=== PATIENT | male | born 1950 | race African-American/Black ===

== ENCOUNTER → 2019-08-14 | Day surgery (SDC) | payer OTHER, MEDICAID ==
[~2019-08-14] MED LIST: AMLO10TA4 PO; DIAZ5TAB PO; HYDR-2761 PO; IV RINGERS,LACTATED 1000ML 1,000 ML IV SCH; OMEP20CA5 PO; ONDA4TAB10 SL; PANT20TA2 PO; PROPOFOL 20 ML IV ONE; RANI300C PO; TAMS0.4C97 PO; hydrochlorothiazide PO; lisinopril PO
[2019-08-14 11:15] VITALS: BP 179/95
== END | disposition home or self-care (01) ==
LOC: ENDOS 09:07
PROVIDERS: ATTEND Internal Medicine Gastroenterology
DX: D50.9 Iron deficiency anemia, unspecified (principal); K64.0 First degree hemorrhoids; R63.4 Abnormal weight loss; K29.40 Chronic atrophic gastritis without bleeding; G47.30 Sleep apnea, unspecified; I10 Essential (primary) hypertension; Z88.6 Allergy status to analgesic agent; Z88.8 Allergy status to other drugs, medicaments and biological substances; Z85.038 Personal history of other malignant neoplasm of large intestine; Z79.899 Other long term (current) drug therapy
CPT/HCPCS: 43235; 45378; J2704

== ENCOUNTER 2020-08-16 23:27 | Emergency (ER) | payer OTHER, MEDICAID ==
[~2020-08-16] VITALS: Ht 162.6 cm; Wt 52.2 kg
[~2020-08-16 23:27] MED LIST changes: -IV RINGERS,LACTATED 1000ML 1,000 ML IV SCH; -PROPOFOL 20 ML IV ONE
[2020-08-17] MEDS ORDERED: LABETALOL 20 MG/4 ML DISP.SYRIN. IVP ONE (01:00)
--- NOTE | 2020-08-17 01:03 | PHYS DOC ---
Past Medical History Past Medical History: Arthritis, COPD, GERD, Hypertension, Lung Disease, Pneumonia, Additional Disease, Other Additional Past Medical Histor: Essential Tremor, Urinary Retention Past Surgical History: Other Additional Past Surgical Histo: right hand surgery Smoking Status: Current Every Day Smoker Alcohol Use: Occasionally Drug Use: None General Adult EDM: Chief Complaint: HYPERTENSION HPI: HPI: Patient is a 70 year old male who presents to the emergency department due to elevated blood pressure. Patient states that he had a dispute with one of his family members and has not been able to get any of his several blood pressure medications for the past week. He states that he has a slight headache but no nausea vomiting blurred vision or lightheadedness. He cannot recall all of his medications but knows that one of them is lisinopril. He normally follows with [facility]. Review of Systems: Review of Systems: Review of systems: Constitutional symptoms- No fever, no chills. Eyes- No Discharge, No Visual Loss Respiratory symptoms- No shortness of breath, No wheezing, No Dyspnea on Exertion Cardiovascular Systems; No chest pain, No Palpitations, No syncope Gastrointestinal symptoms: NO abdominal pain, no nausea, no vomiting or diarrhea. Genitourinary symptoms: No dysuria. Musculoskeletal symptoms: No back pain No extremity pain. NEUROLOGICAL Symptoms: Positive headache, no generalized weakness; No focal Weakness Heart Score: C/O Chest Pain: N/A Risk Factors: Risk Factors: DM, Current or recent (<one month) smoker, HTN, HLP, family hi story of CAD, obesity. Risk Scores: Score 0 - 3: 2.5% MACE over next 6 weeks - Discharge Home Score 4 - 6: 20.3% MACE over next 6 weeks - Admit for Clinical Observation Score 7 - 10: 72.7% MACE over next 6 weeks - Early Invasive Strategies Current Medications: Current Medications Medications (Trade) Dose Ordered Sig/Jose David Start Time Stop Time Status Last Admin Dose Admin Labetalol HCl (Normodyne Iv Push) 20 mg 1X ONCE 08/17/20 01:00 08/17/20 01:01 Allergies: Allergies: Allergies Coded Allergies Type Severity Reaction Last Updated Verified aspirin Adverse Reaction Intermediate "STOMACH BLEEDS" 08/17/20 Yes bismuth subsalicylate Adverse Reaction Intermediate "STOMACH BLEEDS" 08/17/20 Yes ibuprofen Adverse Reaction Intermediate "STOMACH BLEEDS" 08/17/20 Yes Physical Exam: PE: General: alert, no acute distress. Skin: warm, dry and intact. Head:: Normocephalic, atraumatic. Neck: Trachea midline. Eyes: EOMI, Normal conjunctiva, No drainage CARDIOVASCULAR: Regular rate and rhythm RESPIRATORY: No respiratory distress Back: Full range of motion. MUSCULOSKELETAL: Full range of motion of bilateral upper and lower extremities. GASTROINTESTINAL: Abdomen soft without rebound or guarding. NEUROLOGICAL: Alert and noted to person, place and time. No neurological deficits observed Psychiatric: Cooperative. Normal judgment EKG: EKG: [] Radiology/Procedures: Radiology/Procedures: [] Course & Med Decision Making: Course & Med Decision Making Pertinent Labs and Imaging studies reviewed. (See chart for details) []Treated with labetolol. Blood pressure 164/80's Nishi Disclaimer: Nishi Disclaimer: This electronic medical record was generated, in whole or in part, using a voice recognition dictation system. Departure Departure Impression: Primary Impression: Hypertension Disposition: HOME / SELF CARE / HOMELESS Condition: STABLE Referrals: VICKI LOPEZ MD (PCP) ZACHARIAH STRONG DO Aug 17, 2020 01:03
--- NOTE | 2020-08-17 01:44 | EKG ---
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
[2020-08-17 03:00] LABS: BASO # 0.1 x10^3/uL (0.0-0.2); BASO % 2 % (0-3); EOS # 0.1 x10^3/uL (0.0-0.7); EOS % 2 % (0-3); HEMOGLOBIN 13.4 g/dL (13.0-17.5); LYMPH # 1.6 x10^3/uL (1.0-4.8); LYMPH % 30 % (24-48); MEAN CORPUSCULAR HEMOGLOBIN 31 pg (25-35); MEAN CORPUSCULAR HGB CONC 33 g/dL (31-37); MEAN CORPUSCULAR VOLUME 92 fL (79-100); MONO # 0.6 x10^3/uL (0.0-1.1); MONO % 12 % (0-9); NEUT % 56 % (31-73); PLATELET COUNT 302 x10^3/uL (140-400); RED BLOOD COUNT 4.33 x10^6/uL (4.30-5.70); RED CELL DISTRIBUTION WIDTH 17.7 % (11.5-14.5); WHITE BLOOD COUNT 5.3 x10^3/uL (4.0-11.0)
[2020-08-17 03:13] LABS: CALCIUM 8.7 mg/dL (8.5-10.1); CREATININE 1.1 mg/dL (0.7-1.3); GFR 79.8; POTASSIUM 4.6 mmol/L (3.5-5.1)
[2020-08-17 03:19] LABS: ALBUMIN/GLOBULIN RATIO 0.6 (1.0-1.7); TOTAL BILIRUBIN 0.3 mg/dL (0.2-1.0); TOTAL PROTEIN 8.4 g/dL (6.4-8.2)
[2020-08-17 03:52] VITALS: BP 151/82
[2020-08-17] MEDS ORDERED: DIAZ5TAB PO (09:19)
== END 2020-08-17 06:40 | disposition home or self-care (01) ==
LOC: ER 23:27
DX: I10 Essential (primary) hypertension (principal); R51.9 Headache, unspecified; M19.90 Unspecified osteoarthritis, unspecified site; J44.9 Chronic obstructive pulmonary disease, unspecified; K21.9 Gastro-esophageal reflux disease without esophagitis; F17.210 Nicotine dependence, cigarettes, uncomplicated; Z88.6 Allergy status to analgesic agent; Z88.8 Allergy status to other drugs, medicaments and biological substances
CPT/HCPCS: 36415; 80053; 84484; 85025; 93005; 96374; 99284; J3490

== ENCOUNTER 2020-08-17 07:32 | Emergency (ER) | payer OTHER, MEDICAID ==
[~2020-08-17] VITALS: Ht 162.6 cm; Wt 48.7 kg
[2020-08-17] MEDS ORDERED: cloNIDine HCL 0.1 MG TABLET PO ONE (08:15)
[2020-08-17] MEDS ORDERED: diazePAM 5 MG TABLET PO ONE (08:15)
--- NOTE | 2020-08-17 09:12 | PHYS DOC ---
Past Medical History Past Medical History: Arthritis, COPD, GERD, Hypertension, Lung Disease, Pneumonia, Additional Disease, Other Additional Past Medical Histor: Essential Tremor, Urinary Retention Past Surgical History: Other Additional Past Surgical Histo: right hand surgery Smoking Status: Current Every Day Smoker Additional Information: 04/30 ppd Alcohol Use: Occasionally Drug Use: None Social History Narrative: last used 2 days ago General Adult EDM: Chief Complaint: TREMORS HPI: HPI: Patient is a 70 year old male who was seen here in the ER last night due to elevated blood pressure. Patient said his sister had his blood pressure medications, he had a dispute with a family member so he did not come by to get his medication for several days. Patient was seen here last night, was given medication in the ED, his blood pressure was improved and patient was discharged home. Patient was waiting in waiting room to be cut by his sister when he is feeling tremor and shaky. Patient said he is on Valium 5 mg 3 times a day as needed for his tremor disorder and he had not taken this medication for several days because he is out of it. Patient denies any headache, no chest pain, no abdominal pain, no nausea vomiting. Patient denies suicidal ideation, denies homicidal nation. Review of Systems: Review of Systems: Constitutional: Denies fever or chills. [] Eyes: Denies change in visual acuity. [] HENT: Denies nasal congestion or sore throat. [] Respiratory: Denies cough or shortness of breath. [] Cardiovascular: Denies chest pain or edema. [] GI: Denies abdominal pain, nausea, vomiting, bloody stools or diarrhea. [] : Denies dysuria. [] Musculoskeletal: Denies back pain or joint pain. [] Integument: Denies rash. [] Neurologic: Denies headache, focal weakness or sensory changes. [] Endocrine: Denies polyuria or polydipsia. [] Lymphatic: Denies swollen glands. [] Psychiatric: Denies depression or anxiety. [] Heart Score: C/O Chest Pain: N/A Risk Factors: Risk Factors: DM, Current or recent (<one month) smoker, HTN, HLP, family history of CAD, obesity. Risk Scores: Score 0 - 3: 2.5% MACE over next 6 weeks - Discharge Home Score 4 - 6: 20.3% MACE over next 6 weeks - Admit for Clinical Observation Score 7 - 10: 72.7% MACE over next 6 weeks - Early Invasive Strategies Current Medications: Current Medications Medications (Trade) Dose Ordered Sig/Jose David Start Time Stop Time Status Last Admin Dose Admin Clonidine HCl (Catapres) 0.2 mg 1X ONCE 08/17/20 08:15 08/17/20 08:16 DC 08/17/20 08:26 0.2 MG Diazepam (Valium) 5 mg 1X ONCE 08/17/20 08:15 08/17/20 08:16 DC 08/17/20 08:25 5 MG Allergies: Allergies: Allergies Coded Allergies Type Severity Reaction Last Updated Verified aspirin Adverse Reaction Intermediate "STOMACH BLEEDS" 08/17/20 Yes bismuth subsalicylate Adverse Reaction Intermediate "STOMACH BLEEDS" 08/17/20 Yes ibuprofen Adverse Reaction Intermediate "STOMACH BLEEDS" 08/17/20 Yes Physical Exam: PE: Constitutional: Well developed, well nourished, no acute distress, non-toxic appearance. [] HENT: Normocephalic, atraumatic, bilateral external ears normal, oropharynx moist, no oral exudates, nose normal. [] Eyes: PERRLA, EOMI, conjunctiva normal, no discharge. [] Neck: Normal range of motion, no tenderness, supple, no stridor. [] Cardiovascular:Heart rate regular rhythm, no murmur [] Lungs & Thorax: Bilateral breath sounds clear to auscultation [] Abdomen: Bowel sounds normal, soft, no tenderness, no masses, no pulsatile masses. [] Skin: Warm, dry, no erythema, no rash. [] Back: No tenderness, no CVA tenderness. [] Extremities: No tenderness, no cyanosis, no clubbing, ROM intact, no edema. [] Neurologic: Alert and oriented X 3, normal motor function, normal sensory function, no focal deficits noted. mild tremor, pill rolling tremor in his hands. Psychologic: Affect normal, judgement normal, mood normal. [] Current Patient Data: Vital Signs: Vital Signs Date Time Temp Pulse Resp B/P (MAP) Pulse Ox O2 Delivery O2 Flow Rate FiO2 08/17/20 08:26 77 180/104 08/17/20 08:24 20 99 Room Air 08/17/20 07:48 97.8 97.8 EKG: EKG: [] Radiology/Procedures: Radiology/Procedures: [] Course & Med Decision Making: Course & Med Decision Making Pertinent Labs and Imaging studies reviewed. (See chart for details) Patient was given blood pressure medication and Valium in the ER, he feels much better. Patient will be discharged home with a prescription for Valium. Dragon Disclaimer: Dragon Disclaimer: This electronic medical record was generated, in whole or in part, using a voice recognition dictation system. Departure Departure Impression: Primary Impression: Tremor Additional Impression: HTN (hypertension) Disposition: HOME / SELF CARE / HOMELESS Condition: IMPROVED Referrals: VICKI LOPEZ MD (PCP) Please follow up with your doctor this week Patient Instructions: Medication Refill, Emergency Department, Tremor Additional Instructions: Thank you for visiting our Emergency Department. We appreciate you trusting us with your care. If any additional problems come up don't hesitate to return to visit us. Please follow up with your primary care provider so they can plan additional care if needed and know about the problem that you had. If symptoms worsen come back to the Emergency Department. Any concerning symptoms that start such as chest pain, shortness of air, weakness or numbness on one side of the body, running high fevers or any other concerning symptoms return to the ER. Scripts Diazepam (VALIUM) 5 Mg Tablet 5 MG PO TID PRN for TREMORS for 7 Days, #21 TAB Prov: TANA TAVARES DO 08/17/20 TANA TAVARES DO Aug 17, 2020 09:12
[2020-08-17] MEDS ORDERED: DIAZ5TAB PO (09:19)
[2020-08-17 09:20] VITALS: BP 153/94
== END 2020-08-17 09:45 | disposition home or self-care (01) ==
LOC: ER 07:32
DX: I10 Essential (primary) hypertension (principal); R25.1 Tremor, unspecified; K21.9 Gastro-esophageal reflux disease without esophagitis; J44.9 Chronic obstructive pulmonary disease, unspecified; F17.200 Nicotine dependence, unspecified, uncomplicated; Z88.6 Allergy status to analgesic agent; Z88.8 Allergy status to other drugs, medicaments and biological substances
CPT/HCPCS: 99284